=== PATIENT | male | born 1970 | race African-American/Black ===

== ENCOUNTER 2020-02-26 13:39 | Observation (INO) ==
[2020-02-26] MEDS ORDERED: DEXTROSE 50% 25 GM/50 ML VIAL IV PRN (16:01)
[2020-02-26] MEDS ORDERED: ACETAMINOPHEN 325 MG TABLET PO PRN (16:01)
[2020-02-26] MEDS ORDERED: GLUCAGON 1 MG VIAL IM PRN (16:01)
[2020-02-26] MEDS ORDERED: ONDANSETRON 4 MG/2 ML VIAL IV PRN (16:01)
[2020-02-26] MEDS ORDERED: INFLUENZA VIRUS VACCINE 0.5 ML SYRINGE IM ONE (16:04)
[2020-02-26] MEDS ORDERED: LORazepam 2 MG/1 ML VIAL IV PRN (16:39)
[2020-02-26] MEDS: SODIUM CHLORIDE 0.9% 1,000 ML IV SCH (17:18)
[2020-02-26] MEDS: NITROGLYCERIN 2% OINT 1 INCH/GM PACK TOP SCH (17:19)
[2020-02-26] MEDS ORDERED: ENOXAPARIN 40 MG/0.4 ML SYRINGE SUBCUT SCH (21:00)
[2020-02-26] MEDS: INSULIN REGULAR 100 UNIT/ML SUBCUT SCH (21:52)
[2020-02-27] MEDS: NITROGLYCERIN 2% OINT 1 INCH/GM PACK TOP SCH ×2 (00:27→05:50)
[2020-02-27 07:01] LABS: Basophils # 0.1 10*3/uL (0.0-0.2); Basophils % 0.9 % (0.0-0.8); Eosinophils # 0.1 10*3/uL (0.0-0.87); Eosinophils % 0.9 % (0.00-10.9); Hematocrit 35.7 VOL% (42.0-52.0); Hemoglobin 12.2 GM/DL (14.0-18.0); Immature Granulocytes % 0.2 %; Immature Granulocytes Absolute 0.01 #; Lymphocytes # 1.7 10*3/uL (1.4-4.0); Lymphocytes % 31.4 % (21.2-54.2); Mean Corpuscular HGB Conc 34.2 GM/DL (32-36); Monocytes % 12.5 % (1.7-12.7); Neutrophils % 54.1 % (38.7-73.9); Platelet Count 247 T/CUMM (130-400); Red Blood Count 4.46 MC/CUMM (3.8-5.5); Red Cell Distribution Width 13.1 % (9.3-17.3); White Blood Count 5.3 T/CUMM (4-12)
[2020-02-27 07:20] LABS: Risk Ratio 2.72; VLDL CHOLESTEROL 19.2 MG/DL
[2020-02-27 07:21] LABS: Albumin 3.3 G/DL (3.4-5.0); Bilirubin,Total 0.5 MG/DL (0.2-1.0); Calcium 8.4 MG/DL (8.5-10.1); Osmolality,Calculated 279.4 MOS/KG (273-304)
[2020-02-27 08:26] VITALS: BP 131/89
[2020-02-27] MEDS ORDERED: ALUM/MAG/SIMETH/LIDO VISC 1:1 30 ML BOTTLE PO ONE (08:53)
[2020-02-27] MEDS ORDERED: FOLIC ACID 1 MG TABLET PO SCH (09:00)
[2020-02-27] MEDS ORDERED: MULTIVITAMIN (CENTRUM) TABLET PO SCH (09:00)
[2020-02-27] MEDS ORDERED: PANTOPRAZOLE 40 MG TABLET PO SCH (09:00)
[2020-02-27] MEDS ORDERED: THIAMINE 100 MG TABLET PO SCH (09:00)
[2020-02-27] MEDS ORDERED: ASPIRIN EC 81 MG TABLET PO SCH (09:00)
[2020-02-27 09:14] LABS: Troponin I < 0.015 NG/ML (0.00-0.045)
[2020-02-27] MEDS: INSULIN REGULAR 100 UNIT/ML SUBCUT SCH (09:45)
[2020-02-27] MEDS: SODIUM CHLORIDE 0.9% 1,000 ML IV SCH (09:46)
[2020-02-27 13:59] LABS: Barbiturates Screen,Urine Negative (Negative); Benzodiazepines Screen,Urine Negative (Negative); Cannabinoid Screen,Urine Negative (Negative); Opiate Screen,Urine Negative (Negative); Phencyclidine Screen,Urine Negative (Negative)
== END 2020-02-27 12:02 | disposition home or self-care (01) ==
LOC: N.TELES → SUATTDRO 15:20
PROVIDERS: ADMIT Internal Medicine; ATTEND Family Medicine